=== PATIENT | female | born 1990 | race Two or more races ===

== ENCOUNTER 2025-01-07 00:15 | Emergency (ER) | payer MEDICAID, OTHER ==
[~2025-01-07] VITALS: Ht 170.2 cm; Wt 159.0 kg
[2025-01-07 00:46] LABS: Hematocrit 38.6 % (36.0-46.0); Hemoglobin 13.1 g/dL (12.2-16.2); Mean Corpuscular Hemoglobin 28.3 pg (28.0-32.0); Mean Corpuscular Volume 83.5 fL (80.0-100.0); Nucleated Red Blood Cells % 0.1 %
[2025-01-07 00:59] LABS: Chloride 106 mmol/L (98-107); Sodium 138 mmol/L (136-145)
[2025-01-07 01:00] LABS: Anion Gap 11 (5-15); Carbon Dioxide 21 mmol/L (20-31)
[2025-01-07 01:01] LABS: Calcium 9.1 mg/dL (8.7-10.4); Potassium 3.5 mmol/L (3.5-5.1)
[2025-01-07 01:06] LABS: BUN/Creatinine Ratio 11.0 (10.0-20.0); Blood Urea Nitrogen 9 mg/dL (9-23); Lipase 26 U/L (12-53)
[2025-01-07 01:24] LABS: Glucose 119 mg/dL (74-106)
[2025-01-07] MEDS: HYDROmorphone HCL 2 MG/ML VL/or syr IM ONE (02:13)
--- NOTE | 2025-01-07 02:17 | ED.PDOC ---
General HPI Comments This patient is a pleasant but severely morbidly obese 34-year-old female who arrives the ED today via EMS due to complaints of diffuse abdominal pain concerns that have worsened in the past couple of hours over the past three days. Patient states the symptoms came on around her epigastric region and was extending down towards her umbilical region. Patient states several hours ago it intensified and now has been unrelenting in significant. Patient denies any fever. Vital signs were stable on arrival. Patient has a history of a cholecystectomy. Chief Complaint: Abdominal Pain Time Seen by MD: 00:17 Reviewed notes: Nurses Notes, Echocardiograph Technician Notes Allergies: Coded Allergies: NO KNOWN ALLERGIES (Unverified , 01/07/25) Home Meds Active Scripts Hydrocodone-Acetaminophen (Hydrocodone Bitartrate/AC 5-325 mg) 1 Tab Tab, 1 TAB PO Q6HP PRN, #20 TAB Prov:MAT PATRICIA PAC 01/07/25 Ibuprofen Micronized (Ibuprofen) 800 Mg Tab, 800 MG PO Q8HP PRN, #20 TAB Prov:MAT PATRICIA PAC 01/07/25 Ciprofloxacin Hcl (Cipro) 500 Mg Tab, 1 TAB PO BID for 7 Days, #14 TAB Prov:MAT PATRICIA [facility] 01/07/25 Information Source: Patient, Emergency Med Personnel Mode of Arrival: EMS Severity: Moderate Timing: Days Duration: Since onset Prehospital treatment: Pain Meds Onset: Spontaneous Symptoms: None History of: None Location: Abdomen, Other (Periumbilical) Modifying factors: None associated signs and symptoms: Abdominal Pain, Nausea, None Past Medical History PAST MEDICAL HISTORY: Denies Surgical History: Cholecystectomy OB/GYN History: No Pertinent OB/GYN History Family History Family History: Reviewed,noncontributory to illness, No family hx of Cancer, No family hx of DM, No family hx of Heart [place], No family hx of HTN, No family hx ofKidney [place], No family hx of Liver [place], No family hx of Lung [place], No family hx of Stroke Social History Smoker: Non-Smoker Alcohol: Denies ETOH Use Drugs: Denies Drug Use Lives In: Home Constitutional: denies: chills, diaphoresis, fatigue, fever, malaise, sweats, weakness, others EENTM: denies: blurred vision, double vision, ear bleeding, ear discharge, ear drainage, ear pain, ear ringing, eye pain, eye redness, hearing loss, mouth pain, mouth swelling, nasal discharge, nose bleeding, nose congestion, nose pain, photophobia, tearing, throat pain, throat swelling, voice changes, others Respiratory: denies: cough, hemoptysis, orthopnea, SOB at rest, shortness of breath, SOB with excertion, stridor, wheezing, others Cardiovascular: denies: chest pain, dizzy spells, diaphoresis, Dyspnea on exertion, edema, irregular heart beat, left arm pain, lightheadedness, palpitations, PND, syncope, others Gastrointestinal: reports: abdominal pain, nausea; denies: abdomen distended, blood streaked bowels, constipated, diarrhea, dysphagia, difficulty swallowing, hematemesis, melena, poor appetite, poor fluid intake, rectal bleeding, rectal pain, vomiting, others Genitourinary: denies: abnormal vagina bleeding, burning, dyspareunia, dysuria, flank pain, frequency, hematuria, incontinence, pain, , vagina discharge, urgency, others Neurological: denies: dizziness, fainting, headache, left sided numbness, left sided weakness, numbness, paresthesia, pre-existing deficit, right sided numbness, right sided weakness, seizure, speech problems, tingling, tremors, weakness, others Musculoskeletal: denies: back pain, gout, joint pain, joint swelling, muscle pain, muscle stiffness, neck pain, others Integumetry: denies: bruises, change in color, change in hair/nails, dryness, laceration, lesions, lumps, rash, wounds, others Allergic/Immunocompromised: denies: Difficulty Healing, Frequent Infections, Hives, Itching, others Hematologic/Lymphatic: denies: anemia, blood clots, easy bleeding, easy bruising, swollen glands, others Endocrine: denies: excessive hunger, excessive sweating, excessive thirst, excessive urination, flushing, intolerance to cold, intolerance to heat, unexplained weight gain, unexplained weight loss, others Psychiatric: denies: anxiety, bipolar disorder, depression, hopeless, panic disorder, schizophrenia, sleepless, suicidal, others Physical Exam General Appearance: Moderate Distress (Moderate to significant distress due to belly pain concerns. Patient was tearful at time of evaluation.), Obese HEENT: Normal ENT Inspection, Pharynx Normal, TMs Normal Neck: Full Range of Motion, Non-Tender, Normal, Normal Inspection Respiratory: Chest Non-Tender, Lungs Clear, No Accessory Muscle Use, No Respiratory Distress, Normal Breath Sounds Cardiovascular: No Edema, No JVD, No Murmur, No Gallop, Normal Peripheral Pulses, Regular Rate/Rhythm Breast Exam: Deferred Gastrointestinal: Other (Diffuse epigastric pain extending towards the umbilicus region. Difficult to assess due to body habitus. No edema or ecchymosis. No pulsatile masses noted.) Genitalia: Deferred Pelvic: Deferred Rectal: Deferred Extremities: No calf tenderness, Normal capillary refill, Normal inspection, Normal range of motion, Non-tender, No pedal edema Neurologic: Alert, No Motor Deficits, No Sensory Deficits Cerebellar Function: NOT DONE Reflexes: NOT DONE Skin: Dry, Normal Color, Warm Lymphatic: No Adenopathy Was a procedure done? Was a procedure done?: No Differential Diagnosis Kidney stone (Female): Bowel obstruction, Cholelithiasis, Pancreatitis, Other (Small-bowel obstruction, constipation) X-Ray, Labs, Meds, VS Vital Signs Date Time Temp Pulse Resp B/P (MAP) Pulse Ox O2 Delivery O2 Flow Rate FiO2 01/07/25 05:04 82 16 146/112 (123) 98 01/07/25 02:13 90 20 156/105 01/07/25 00:15 98.7 107 25 128/87 (101) 99 98.7 Lab Test 01/07/25 00:33 01/07/25 00:15 Range/Units White Blood Count 16.5 H 4.4-10.8 10^3/uL Red Blood Count 4.62 4.0-5.20 10^6/uL Hemoglobin 13.1 12.2-16.2 g/dL Hematocrit 38.6 36.0-46.0 % Mean Corpuscular Volume 83.5 80.0-100.0 fL Mean Corpuscular Hemoglobin 28.3 28.0-32.0 pg Mean Corpuscular Hemoglobin Concent 33.9 32.0-36.0 g/dL Red Cell Distribution Width 14.4 H 11.8-14.3 % Platelet Count 309 140-450 10^3/uL Mean Platelet Volume 7.9 6.9-10.8 fL Neutrophils (%) (Auto) 68.1 37.0-80.0 % Lymphocytes (%) (Auto) 24.4 10.0-50.0 % Monocytes (%) (Auto) 5.4 0.0-12.0 % Eosinophils (%) (Auto) 0.9 0.0-7.0 % Basophils (%) (Auto) 1.2 0.0-2.0 % Neutrophils # (Auto) 11.2 H 1.6-8.6 10 ^3/uL Lymphocytes # (Auto) 4.0 0.4-5.4 10 ^3/uL Monocytes # (Auto) 0.9 0-1.3 10 ^3/uL Eosinophils # (Auto) 0.2 0-0.8 10 ^3/uL Basophils # (Auto) 0.2 0-0.2 10 ^3/uL Nucleated Red Blood Cells 0.1 % Sodium Level 138 136-145 mmol/L Potassium Level 3.5 3.5-5.1 mmol/L Chloride Level 106 98-107 mmol/L Carbon Dioxide Level 21 20-31 mmol/L Anion Gap 11 5-15 Blood Urea Nitrogen 9 9-23 mg/dL Creatinine 0.82 0.550-1.02 mg/dL Glomerular Filtration Rate Calc 96 >90 mL/min BUN/Creatinine Ratio 11.0 10.0-20.0 Serum Glucose 119 H 74-106 mg/dL Calcium Level 9.1 8.7-10.4 mg/dL Troponin I High Sensitivity < 3 L </=34 ng/L B-Type Natriuretic Peptide 11.87 0-100 pg/mL Lipase 26 12-53 U/L Urine Color Yellow Yellow Urine Clarity Turbid H Clear Urine pH 7.0 5.0-9.0 Urine Specific [place] 1.025 1.001-1.035 Urine Protein Trace H Negative Urine Ketones Trace Negative Urine Blood Negative Negative /uL Urine Nitrite Negative Negative Urine Bilirubin Negative Negative Urine Urobilinogen Normal Negative mg/dL Urine Leukocyte Esterase 2+ Negative /uL Urine RBC 8 0 - 4 /hpf Urine Microscopic WBC 20 H 0-5 /HPF Urine Squamous Epithelial Cells Few <5 /hpf Urine Bacteria None seen None Seen /hpf Urine Mucus Few None Seen Urine Yeast (Budding) Occasional None Seen /hpf Urine Glucose Normal Normal mg/dL Current Medications Medications (Trade) Dose Ordered Sig/Alen Route Start Time Stop Time Status Last Admin Hydromorphone HCl (Dilaudid Injection) 1 mg ONCE ONCE IM 01/07/25 00:30 01/07/25 00:31 DC 01/07/25 02:13 Ondansetron HCl (Zofran) 4 mg ONCE ONCE IV 01/07/25 02:15 01/07/25 02:16 DC 01/07/25 02:24 Ciprofloxacin (Cipro Tablet) 500 mg ONCE ONCE PO 01/07/25 03:00 01/07/25 03:01 DC 01/07/25 04:49 PROCEDURE(s): ABPL - CT AB PEL WO CON-NO ORAL OR IV REASON: Diffuse central abdominal pain ORDER NUMBER(s): [id number], ACCESSION NUMBER(s): [id number] EXAM: CT CT AB PEL WO CON-NO ORAL OR IV HISTORY: Diffuse central abdominal pain COMPARISON: None TECHNIQUE: Helical CT images of the abdomen and pelvis were performed without IV contrast. Sagittal and coronal reformatted images were obtained. This CT exam was performed using one or more of the following dose reduction techniques: Automated exposure control, adjustment of the mA and/or kv according to patient size, or the use of iterative reconstruction techniques. Radiation Dose: Abdomen/Pelvis: CTDIvol 26.1 mGy, DLP 1649.8 mGy*cm. FINDINGS: CT abdomen: The lung bases are clear. The heart is not enlarged. The liver is diffusely fatty density and measures 20 cm longitudinal. There is a 14 mm left adrenal nodule ( image 35, series 2) with internal density 20 HU. The noncontrast spleen, gallbladder, pancreas, kidneys, and adrenal glands are unre markable. No abdominal aortic aneurysm. There is a fatty ventral midline supraumbilical abdominal wall hernia. CT pelvis: No abnormal bowel dilatation, free air, or free fluid. The appendix is surgically absent. The urinary bladder is decompressed. There may be a posterior exophytic uterine fibroid versus appearance due to adjacent ovarian tissue. There is mild lumbar degenerative disc disease. There is large volume subcutaneous adipose tissue throughout. IMPRESSION: 1. Hepatomegaly and hepatic steatosis. 2. Obesity. 3. Postoperative changes of appendectomy. 4. No evidence of bowel obstruction or other acute process in the abdomen or pelvis. X-Ray, Labs, Meds, VS Comment All studies performed the ED were reviewed by me personally. CT results were pending at time of this note. Serum laboratories revealed a leukocytosis and urinalysis confirmed a urinary tract infection. Patient was given her 1st dose of Cipro tonight. Imaging studies will be reviewed by Dr. Jonas. Once evaluated, she will respond accordingly. Addendum by Dr. Sumi Matson: CT results reviewed: IMPRESSION: 1. Hepatomegaly and hepatic steatosis. 2. Obesity. 3. Postoperative changes of appendectomy. 4. No evidence of bowel obstruction or other acute process in the abdomen or pelvis. Patient well-appearing with stable vitals. Appears stable for discharge with close outpatient follow-up. Time of 1ST Reevaluation: 02:16 Reevaluation 1ST: Improved Consultation: PCP, GI Patient Education/Counseling: Diagnosis, Treatment Family Education/Counseling: Diagnosis, Treatment SEPSIS Sepsis Screen Date sepsis recognized/suspect: Jan 07, 2025 Time Sepsis recognized/suspect: 14 Recent Procedure: No On Antibiotic Therapy: No Respiratory Rate >20: No Heart Rate >90: No Temp<36 C (96.8 F) or >38.3 C: No SBP <90 or MAP <65 mmHG: No New Acute Mental Status Change: No Is the patient on CPAP, BIPAP,: No Physician Orders Electrocardigram (01/07/25 00:23) Ct Ab Pel Wo Con-No Oral Or Iv (01/07/25 00:23) Vital Signs Date Time Temp Pulse Resp B/P (MAP) Pulse Ox O2 Delivery O2 Flow Rate FiO2 01/07/25 05:04 82 16 146/112 (123) 98 01/07/25 02:13 90 20 156/105 01/07/25 00:15 98.7 107 25 128/87 (101) 99 98.7 Laboratory Tests Test 01/07/25 00:33 White Blood Count 16.5 10^3/uL (4.4-10.8) H Medications Medications Dose Ordered Sig/Alen Route Start Time Stop Time Status Last Admin Dose Admin Ciprofloxacin 500 mg ONCE ONCE PO 01/07/25 03:00 01/07/25 03:01 DC 01/07/25 04:49 Hydromorphone HCl 1 mg ONCE ONCE IM 01/07/25 00:30 01/07/25 00:31 DC 01/07/25 02:13 Ondansetron HCl 4 mg ONCE ONCE IV 01/07/25 02:15 01/07/25 02:16 DC 01/07/25 02:24 Departure 1 Departure Time of Disposition: 02:16 Impression: Primary Impression: Urinary tract infection Disposition: 01 HOME / SELF CARE / HOMELESS Condition: Fair Additional Instructions: Advise utilizing antibiotics as directed until completion as well as pain medication as needed. e-Prescriptions Hydrocodone-Acetaminophen (Hydrocodone Bitartrate/AC 5-325 mg) 1 Tab Tab 1 TAB PO Q6HP PRN, #20 TAB Prov: MAT PATRICIA PAC 01/07/25 Ibuprofen Micronized (Ibuprofen) 800 Mg Tab 800 MG PO Q8HP PRN, #20 TAB Prov: MAT PATRICIA PAC 01/07/25 Ciprofloxacin Hcl (Cipro) 500 Mg Tab 1 TAB PO BID for 7 Days, #14 TAB Prov: MAT PATRICIA PAC 01/07/25 Discharged With: Self, Relative Critical Care Note Critical Care Time?: No Stability Stability form required: No Heart Score Heart Score: Heart Score Response (Comments) Value History Slightly Suspicious 0 EKG Repolarization Disturb 1 Age <45 0 Risk Factors 1 or 2 risk factors 1 Troponin Normal limit 0 Total 2 MAT PATRICIA Jan 07, 2025 02:17 GRACE ALBA MD Jan 07, 2025 05:40
[2025-01-07] MEDS: ONDANSETRON HCL 4 MG/2 ML VIAL IV ONE (02:24)
[2025-01-07] MEDS: ONDANSETRON HCL 4 MG/2 ML VIAL ONE (02:24)
[2025-01-07] MEDS: ONDANSETRON ODT 4 MG TAB PO ONE (02:25)
[2025-01-07 02:48] LABS: Urine Budding Yeast OCCASIONAL /hpf (None Seen); Urine Protein, UAD TRACE (Negative)
[2025-01-07] MEDS ORDERED: CIPR-173 PO (02:55)
[2025-01-07] MEDS ORDERED: IBUP-1455 PO (02:55)
[2025-01-07] MEDS ORDERED: HYDR-4902 PO (02:55)
[2025-01-07] MEDS: CIPROFLOXACIN HCL 500 MG TAB PO ONE (04:49)
--- NOTE | 2025-01-07 05:15 | DVH ---
EXAM: CT CT AB PEL WO CON-NO ORAL OR IV HISTORY: Diffuse central abdominal pain COMPARISON: None TECHNIQUE: Helical CT images of the abdomen and pelvis were performed without IV contrast. Sagittal a nd coronal reformatted images were obtained. This CT exam was performed using one or more of the foll owing dose reduction techniques: Automated exposure control, adjustment of the mA and/or kv according to patient size, or the use of iterative reconstruction techniques. Radiation Dose: Abdomen/Pelvis: CTDIvol 26.1 mGy, DLP 1649.8 mGy*cm. FINDINGS: CT abdomen: The lung bases are clear. The heart is not enlarged. The liver is diffusely fatty density and measures 20 cm longitudinal. There is a 14 mm left adrenal nodule ( image 35, series 2) with int ernal density 20 HU. The noncontrast spleen, gallbladder, pancreas, kidneys, and adrenal glands are u nremarkable. No abdominal aortic aneurysm. There is a fatty ventral midline supraumbilical abdominal wall hernia. CT pelvis: No abnormal bowel dilatation, free air, or free fluid. The appendix is surgically absent. The urinary bladder is decompressed. There may be a posterior exophytic uterine fibroid versus appea neeraj due to adjacent ovarian tissue. There is mild lumbar degenerative disc disease. There is large volume subcutaneous adipose tissue throughout. IMPRESSION: 1. Hepatomegaly and hepatic steatosis. 2. Obesity. 3. Postoperative changes of appendectomy. 4. No evidence of bowel obstruction or other acute process in the abdomen or pelvis.
[2025-01-07 06:30] VITALS: BP 149/111; PULSE 89; RESP 16; TEMP 97.9; O2SAT 98
== END 2025-01-07 06:36 | disposition home or self-care (01) ==
LOC: ER 00:15 → EDBD 00:15 → ER 06:36
DX: N39.0 Urinary tract infection, site not specified (principal); Z90.49 Acquired absence of other specified parts of digestive tract; R06.02 Shortness of breath
CPT/HCPCS: 36415; 74176; 80048; 81001; 83690; 83880; 84484; 85025; 96372; 96374; 99285; J1171; J2405; Q0162